=== PATIENT | male | born 1960 | race Caucasian/White ===

== ENCOUNTER 2017-06-24 03:44 | Inpatient (IN) | payer OTHER ==
[2017-06-24] VITALS (16 sets, daily range): BP systolic 103–157; BP diastolic 55–96; PULSE 54–82; RESP 18–22; TEMP 97.7–98.4; O2SAT 92–98
[~2017-06-24] VITALS: Ht 177.8 cm; Wt 128.5 kg
[~2017-06-24 03:44] MED LIST: ATEN-100 PO; ATOR80TA PO; BUDE100T PO; GABA100C4 PO; GLIP5 PO; GLUC1000 PO; LISI-363 PO; NAPR500 PO; PRAZ2CAP PO; SERT-129 PO
[2017-06-24] MEDS ORDERED: NITROGLYCERIN 0.4 MG SL 25 TABS/BTL SL STA (03:54)
[2017-06-24] MEDS ORDERED: ASPIRIN 81 MG CHEW TAB PO STA (03:54)
[2017-06-24] MEDS ORDERED: SODIUM CHLOR 0.9% 1000 ML INJ 1,000 ML IV ONE (03:54)
[2017-06-24] MEDS ORDERED: HEPARIN SODIUM - SQ 10,000 UNITS/ML VIAL SQ ONE (04:00)
[2017-06-24] MEDS ORDERED: HEPARIN SODIUM - IV 10,000 UNITS/10 ML VIAL IV ONE (04:00)
[2017-06-24] MEDS ORDERED: NITROGLYCERIN-D5W 50 MG/250 ML 250 ML IV PRN (04:00)
[2017-06-24] MEDS ORDERED: NITROGLYCERIN 2% OINT 1 GM PACKET TOPICAL ONE (04:00)
[2017-06-24] MEDS ORDERED: SODIUM CHLORIDE 0.9% FLUSH 10 ML FLUSH IVF PRN (04:00)
[2017-06-24] MEDS ORDERED: METF1000 PO (04:14)
[2017-06-24] MEDS ORDERED: GABA100C4 PO (04:14)
[2017-06-24] MEDS ORDERED: ATEN25TA PO (04:14)
[2017-06-24] MEDS ORDERED: LISI-515 PO (04:14)
[2017-06-24] MEDS ORDERED: BUPR100T4 PO (04:14)
[2017-06-24] MEDS ORDERED: GLIP5TAB8 PO (04:14)
[2017-06-24] MEDS ORDERED: SERT-129 PO (04:14)
[2017-06-24] MEDS ORDERED: PRAZ2CAP PO (04:14)
[2017-06-24] MEDS ORDERED: ATOR80TA45 PO (04:14)
[2017-06-24] MEDS ORDERED: MORPHINE SULFATE 2 MG/ML SYRINGE IV PUSH ONE (04:15)
--- NOTE | 2017-06-24 04:15 | RADRPT ---
EXAM DATE/TIME: 06/24/2017 03:55 [place] COMPARISON: No previous studies available for comparison. INDICATIONS : Chest pain, stemi alert. MEDICAL HISTORY : None. SURGICAL HISTORY : None. ENCOUNTER: Initial ACUITY: 1 day PAIN SCORE: 8/10 LOCATION: Bilateral chest FINDINGS: The cardiac silhouette is enlarged in transverse diameter. The lungs are free of acute parenchymal op acity. No effusions are identified. Osseous structures are intact. CONCLUSION: Cardiomegaly. No acute cardiopulmonary disease. Homer Rodriguez MD on June 24, 2017 at 4:14 Board Certified Radiologist. This report was verified electronically.
[2017-06-24 04:16] LABS: AUTOMATED NEUTROPHIL # 8.6 TH/MM3 (1.8-7.7); BASOPHIL # 0.1 TH/MM3 (0-0.2); BASOPHIL % 0.5 % (0.0-2.0); EOSINOPHIL # 0.1 TH/MM3 (0-0.4); EOSINOPHIL % 0.5 % (0.0-4.0); HEMATOCRIT 44.1 % (39.0-51.0); HEMOGLOBIN 15.3 GM/DL (13.0-17.0); LYMPH % 11.3 % (9.0-44.0); LYMPHOCYTE # 1.2 TH/MM3 (1.0-4.8); MEAN CELL VOLUME 100.4 FL (80.0-100.0); MEAN CORPUSCULAR HEMOGLOBIN 34.9 PG (27.0-34.0); MEAN CORPUSCULAR HGB CONC 34.7 % (32.0-36.0); MEAN PLATELET VOLUME 8.6 FL (7.0-11.0); MONO % 6.9 % (0.0-8.0); MONOCYTE # 0.7 TH/MM3 (0-0.9); NEUT % 80.8 % (16.0-70.0); PLATELET COUNT 183 TH/MM3 (150-450); RED BLOOD COUNT 4.39 MIL/MM3 (4.50-5.90); RED CELL DISTRIBUTION WIDTH 13.4 % (11.6-17.2); WHITE BLOOD COUNT 10.6 TH/MM3 (4.0-11.0)
[2017-06-24 04:22] LABS: INTERNATIONAL NORMALIZED RATIO 0.9 RATIO; PROTHROMBIN TIME - PATIENT 9.6 SEC (9.8-11.6)
--- NOTE | 2017-06-24 04:23 | PD ---
HPI . Chest pain Chief Complaint: STEMI Alert Time Seen by Provider: 03:50 Travel History International Travel<30 days: No Contact w/Intl Traveler<30days: No Traveled to known affect area: No History of Present Illness HPI Patient is a 57-year-old male obese diabetic hypertensive out walking his dog tonight developed substernal chest pain very heavy crushing 10 out of 10 pain paramedics were called they arrived they do a 12-lead and he has elevations in the 3 V4 V5 with minimal reciprocal depressions in 1 and aVL. Patient denies any cardiac history in the past patient has no family history patient still having the pain significant in the ER he was given 325 of aspirin in route he was given 2 sublingual nitro he arrives BP is 134/70 heart rate is 90 his EKG done in the ER confirms the ST elevations in V3 V4 V5 I page Dr. Vaughn's lab scientist is open STEMI alert is started and patient is medicated with heparin 5000 unit bolus he been given aspirin and nitro en route I put nitro paste on his chest give him 2 of morphine for vasodilation of the coronary arteries and admit him to the Management Specialist patient is stable at this time but he stills continues to have chest pain labs are pending [facility] Past Medical History Cardiovascular Problems: Yes (htn) Cerebrovascular Accident: Yes Diabetes: Yes Patient Takes Glucophage: Yes Hypertension: Yes Psychiatric: Yes (PTSD) Tetanus Vaccination: Unknown Influenza Vaccination: Yes Past Surgical History Surgical History: No Previous Surgery Social History Alcohol Use: Yes (3 [employer]) Tobacco Use: Yes (1PPD) Substance Use: No Allergies-Medications (Allergen,Severity, Reaction): Coded Allergies: No Known Allergies (Unverified Allergy, Unknown, 06/24/17) Reported Meds & Prescriptions Reported Meds & Active Scripts Active Reported Sertraline (Sertraline HCl) 100 Mg Tab 200 Mg PO DAILY Prazosin (Prazosin HCl) 2 Mg Cap 2 Mg PO HS Metformin (Metformin HCl) 1,000 Mg Tab 1,000 Mg PO BIDPC Lisinopril 20 Mg Tab 20 Mg PO DAILY Glipizide 5 Mg Tab 5 Mg PO BIDAC Take 30 minutes before a meal Gabapentin 100 Mg Cap 100 Mg PO TID Bupropion HCl 100 Mg Tab 100 Mg PO HS Atorvastatin (Atorvastatin Calcium) 80 Mg Tab 80 Mg PO HS Review of Systems Except as stated in HPI: all other systems reviewed are Neg Cardiovascular: Positive: Chest Pain or Discomfort Physical Exam Narrative GENERAL: LARGE BODY HABITUS TALL MALE PALE SLIGHTLY DIAPHORETIC HOLDING CHEST SKIN: Warm and dry. HEAD: Atraumatic. Normocephalic. EYES: Pupils equal and round. No scleral icterus. No injection or drainage. ENT: No nasal bleeding or discharge. Mucous membranes pink and moist. NECK: Trachea midline. No JVD. CARDIOVASCULAR: Regular rate and rhythm. RESPIRATORY: No accessory muscle use. Clear to auscultation. Breath sounds equal bilaterally. GASTROINTESTINAL: Abdomen soft, non-tender, nondistended. Hepatic and splenic margins not palpable. MUSCULOSKELETAL: Extremities without clubbing, cyanosis, or edema. No obvious deformities. NEUROLOGICAL: Awake and alert. No obvious cranial nerve deficits. Motor grossly within normal limits. Five out of 5 muscle strength in the arms and legs. Normal speech. PSYCHIATRIC: Appropriate mood and affect; insight and judgment normal. Data Data Last Documented VS Vital Signs Date Time Temp Pulse Resp B/P (MAP) Pulse Ox O2 Delivery O2 Flow Rate FiO2 06/24/17 03:49 94 2.00 06/24/17 03:48 98.4 71 22 135/62 (86) 06/24/17 03:45 Nasal Cannula Orders Orders Nitroglycerin 2% Oint (Nitroglycerin 2% (06/24/17 04:00) Heparin Inj (Heparin Inj) (06/24/17 04:00) Troponin I (06/24/17 03:54) Ckmb (Isoenzyme) Profile (06/24/17 03:54) Complete Blood Count With Diff (06/24/17 03:54) I-Stat Profile (06/24/17 03:54) I-Stat Creatinine (06/24/17 03:54) Calcium (06/24/17 03:54) Magnesium (Mg) (06/24/17 03:54) Prothrombin Time / Inr (Pt) (06/24/17 03:54) Act Partial Throm Time (Ptt) (06/24/17 03:54) B-Type Natriuretic Peptide (06/24/17 03:54) Chest, Single Ap (06/24/17 03:54) Electrocardiogram (06/24/17 03:54) Oxygen Administration (06/24/17 03:54) Iv Access Insert/Monitor (06/24/17 03:54) Oximetry (06/24/17 03:54) Sodium Chlor 0.9% 1000 Ml Inj (Ns 1000 M (06/24/17 03:54) Sodium Chloride 0.9% Flush (Ns Flush) (06/24/17 04:00) Aspirin Chew (Aspirin Chew) (06/24/17 03:54) Nitroglycerin Sl (Nitrostat Sl) (06/24/17 03:54) Nitroglycerin-D5w 50 Mg/250 Ml (Nitrogly (06/24/17 04:00) Heparin Inj (Heparin Inj) (06/24/17 04:00) Admit Order (Ed Use Only) (06/24/17 03:58) CKMB (06/24/17 03:45) CKMB% (06/24/17 03:45) Labs Laboratory Tests Test 06/24/17 03:45 White Blood Count 10.6 TH/MM3 Red Blood Count 4.39 MIL/MM3 Hemoglobin 15.3 GM/DL Bedside Hemoglobin 15.3 G/DL Hematocrit 44.1 % Bedside Hematocrit 45.0 % Mean Corpuscular Volume 100.4 FL Mean Corpuscular Hemoglobin 34.9 PG Mean Corpuscular Hemoglobin Concent 34.7 % Red Cell Distribution Width 13.4 % Platelet Count 183 TH/MM3 Mean Platelet Volume 8.6 FL Neutrophils (%) (Auto) 80.8 % Lymphocytes (%) (Auto) 11.3 % Monocytes (%) (Auto) 6.9 % Eosinophils (%) (Auto) 0.5 % Basophils (%) (Auto) 0.5 % Neutrophils # (Auto) 8.6 TH/MM3 Lymphocytes # (Auto) 1.2 TH/MM3 Monocytes # (Auto) 0.7 TH/MM3 Eosinophils # (Auto) 0.1 TH/MM3 Basophils # (Auto) 0.1 TH/MM3 CBC Comment DIFF FINAL Differential Comment Prothrombin Time 9.6 SEC Prothromb Time International Ratio 0.9 RATIO Activated Partial Thromboplast Time 28.5 SEC Bedside Sodium 135 MMOL/L Bedside Potassium 4.6 MMOL/L Bedside Chloride 100 MMOL/L Bedside Blood Urea Nitrogen 11 MG/DL Bedside Creatinine 0.7 MG/DL Bedside Glucose 261 MG/DL Calcium Level 8.7 MG/DL Magnesium Level 1.8 MG/DL Total Creatine Kinase 152 U/L Creatine Kinase MB 4.1 NG/ML Troponin I 0.34 NG/ML B-Type Natriuretic Peptide 14 PG/ML MDM Medical Decision Making Medical Screen Exam Complete: Yes Emergency Medical Condition: Yes Interpretation(s) EKG significant > 2mm elevation in V3 V4 V5 ACUTE SD elevation Differential Diagnosis ACS with ischemia to anterior septal area vs LV aneurysm vs aortic dissection at root other Narrative Course pt has obvious STEMI to anterior septal leads and needs emergent cath , EMS 12 lead shows V3-5 elevation and immediately did EKG in OUR ER immediately as pt placed on Exam room stretcher and activated STEMI alert upon our EKG confirming the STEMI , Dr Encinas calls immediately back and takes pt to cath , I bolus Hepain 5000Units Pt had received ASA 324 in EMS and Nitro SL . I put nitro Past and hepainize and Morphine 2 mg for vasodilation effect to coronary arteies . Pt taken to predictive maintenance technician with 20 minutes of arrival Critical Care Narrative 30 min CC time to heparinize and activate STEMI alert and consult interventional cardiology Diagnosis Primary Impression: STEMI (ST elevation myocardial infarction) Qualified Codes: I21.02 - ST elevation (STEMI) myocardial infarction involving left anterior descending coronary artery Scripts Aspirin (Px Aspirin) 325 Mg Tab 325 MG PO DAILY for CAD for 30 Days, #30 TAB Prov: Juhi Briscoe MD 06/25/17 Clopidogrel (Plavix) 75 Mg Tab 75 MG PO DAILY for ACS for 30 Days, #30 TAB 11 Refills Prov: Juhi Briscoe MD 06/25/17 Eduard Mohan MD Jun 24, 2017 04:23
[2017-06-24] MEDS ORDERED: LIDOCAINE HCL 1% PF 30 ML VIAL ONE (04:30)
[2017-06-24] MEDS ORDERED: HEPARIN-NS/PF FLUSH BAG 2,000 ML IV FLUSH ONE (04:31)
[2017-06-24] MEDS ORDERED: MIDAZOLAM HCL 5 MG/5 ML VIAL ONE (04:31)
[2017-06-24] MEDS ORDERED: HEPARIN SODIUM - IV 10,000 UNITS/10 ML VIAL ONE (04:31)
[2017-06-24 04:38] LABS: CALCIUM 8.7 MG/DL (8.5-10.1); MAGNESIUM 1.8 MG/DL (1.5-2.5)
[2017-06-24 04:41] LABS: TROPONIN I 0.34 NG/ML (0.02-0.05)
[2017-06-24] MEDS ORDERED: TIROFIBAN INFUSION INJ 250 ML IV ONE (04:51)
[2017-06-24] MEDS ORDERED: ONDANSETRON HCL 4 MG/2 ML VIAL ONE (04:51)
--- NOTE | 2017-06-24 05:04 | MB ---
cc: Dionisio Encinas MD DATE: 06/24/2017 REASON FOR CONSULTATION: ST elevation myocardial infarction. HISTORY OF PRESENT ILLNESS: The patient is a 57-year-old white male with a history of diabetes, CVA, hypertension and hyperlipidemia who was in his usual state of health up until midnight, when he began to experience severe substernal crushing chest pain while walking his dog. Associated symptoms include shortness of breath without nausea or diaphoresis. He went to the emergency department, where he was found to have EKG evidence for acute ST elevation myocardial infarction, so he was called as a STEMI alert. He denies dizziness, syncope, near syncope, palpitations, pedal edema, paroxysmal nocturnal dyspnea. He denies any prior chest pains. PAST MEDICAL HISTORY: 1. Diabetes. 2. Hypertension. 3. Hyperlipidemia. 4. 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 CARDIAC MEDICATIONS AT HOME: 1. Prazosin 2 mg at bedtime. 2. Lisinopril 20 mg daily. 3. Atorvastatin 80 mg at bedtime. 4. Tenormin 25 mg daily. ALLERGIES: NO KNOWN DRUG ALLERGIES. FAMILY HISTORY: There is no significant family history of early myocardial infarction. PAST SURGICAL HISTORY: None. SOCIAL HISTORY: The patient smokes a pack of cigarettes per day. He drinks occasional alcohol. REVIEW OF SYSTEMS: As in the history of present illness, otherwise negative or noncontributory. He also denies visual changes, abdominal pain, melena, dyspepsia, flu symptoms. PHYSICAL EXAMINATION: VITAL SIGNS: Blood pressure 103/55 with a pulse of 75, respirations 22. GENERAL: He is a well-developed, well-nourished white male in no acute distress. NECK: Jugular venous pressure is normal. Carotid pulses are 2+ bilaterally without bruits. CHEST: Reveals clear lungs moreno. CARDIAC: He has a regular rhythm and rate without S3, S4, or murmur. ABDOMEN: He has a soft, obese, nontender abdomen. Bowel sounds are present. There is no definite hepatosplenomegaly. EXTREMITIES: Reveals no clubbing, cyanosis or edema. Peripheral pulses are normal throughout. LABORATORY DATA: EKG shows sinus rhythm with premature atrial complexes, ST elevation in the anterior leads with reciprocal changes consistent with acute anterior myocardial infarction. LABORATORY DATA: Includes WBC 10.6, hemoglobin 15.3, platelets 183. Potassium 4.6, BUN 11, creatinine 0.7. Chest x-ray shows no acute disease. IMPRESSION: Acute ST elevation anterior myocardial infarction in a 57-year-old white male with a history of hypertension, diabetes, hyperlipidemia, and cerebrovascular accident. At this time, he continues to have severe chest pain with ST elevation on the monitor. Therefore, he has been recommended emergency cardiac catheterization with probable percutaneous coronary intervention. The nature of these procedures and potential risks, including but limited to , myocardial infarction, stroke, arrhythmia, bleeding, renal failure have been outlined. He agrees to proceed. RECOMMENDATIONS: 1. Emergency cardiac catheterization. 2. Continue beta ashley and HAMMAD inhibitor therapy. 3. Continue statin and check a fasting lipid profile. MD ROSS Fraser/NIKKI , 04:43 AM , 05:03 AM ZAYDA
[2017-06-24] MEDS ORDERED: NITROGLYCERIN INJ 5 ML ONE (05:31)
[2017-06-24] MEDS ORDERED: CLOPIDOGREL 300 MG TAB ONE (05:42)
[2017-06-24] MEDS ORDERED: TIROFIBAN INFUSION INJ 250 ML IV SCH (05:55)
[2017-06-24] MEDS: SODIUM CHLOR 0.9% 1000 ML INJ 1,000 ML IV SCH ×2 (05:55→15:55)
[2017-06-24] MEDS ORDERED: MISC INFORMATION XX ONE (06:00)
[2017-06-24] MEDS ORDERED: TEMAZEPAM 15 MG CAP PO PRN (06:00)
--- NOTE | 2017-06-24 06:04 | CATHPROC ---
[facility] HIS Report Study Information Study Number Admission Scheduled Start Study Start [id number] Jun 24 2017 4:00AM 06/24/2017 Jun 24 2017 4:26AM [place] [facility] Cardiac Catheterization Admit Source Facility Department Emergency department [facility] - Technical Planner Physician and Clinical Staff Initial Dionisio Caro Liquor Rectifier Mary Anne Sutton,RN Initial Dionisio Caro Liquor Rectifier Jessica Lopez,RN Recorder Brisa Alberts ,RT(R) Recorder Brisa Alberts ,RT(R) Scrub Andres RoseRT(R) Procedures Performed Procedure Location (Site) Vessel Name Angiogram LV LV Ventricle Coronary Angiograms LCA Left Coronary Coronary Angiograms RCA Right Coronary L Heart Cath PTCA LAD Prox Left Coronary Stent LAD Prox Left Coronary Wire insertion Fem Art (right) Femoral Art Equipment Time 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 Description Size Mfg Part Number Used/Scraped [id number] 04:51 [employer] WIRE, ASAHI PROWATER 180CM 180CM Used *[id number] WIRE, BALANCE MIDDLEWEIGHT [id number] 05:03 [employer] 190CM Used 190CM *[id number] WIRE, WHISPER W/HYDROCOAT [id number] 05:07 [employer] 190CM Used 190CM *[id number] TRANSDUCER, TRUWAVE [id number] 04:31 GARCIA WILSON * Used W/CÉSARCOCK *[id number] 05:41 [employer] VASCADE, FR6 CLOSURE SYSTEM FR 6\\7 Used *[id number] 534-676T *[id number] 534-620T *4543954 534-617T *5366954 534-650S *[id number] [phone] *3721770 [phone] *9749982 [phone] *[id number] 04:31 MEDLINE IND[employer]RIES PACK, CCL CUSTOM * Used *[id number] 04:31 MEDLINE PACER PEN, SKIN DUAL W/ RULER * Used *[id number] 05:17 MEDTR[employer] BALLOON, 2.0 X 12MM EUPHORA 12MM Used *[id number] 05:12 [employer] BALLOON, 2.0 X 6MM EUPHORA 6MM Used *[id number] 05:27 [employer] BALLOON, 2.5 X 20MM EUPHORA 20MM Used *[id number] [id number] 05:33 [employer] STENT, 2.5 26 INTEGRITY 2.5 26 Used *[id number] [id number] 05:16 [employer] 30 REYMUNDO INDEFLATOR Used *8554317 [id number] 04:31 [employer] SHEATH, FR6.5 PRELUDE 11CM FR 6.5 038ACT Used *[id number] [id number] 04:31 [employer] WIRE, 3MMJ .035 180CM 180CM Used *[id number] 04:31 NAMIC MANIFOLD, 4 PORT * Used *[id number] 05:37 NAMIC TUBING, HIGH PRESSURE 20" 20" Used *[id number] 04:31 [employer]COMED OMNIPAQUE, 350 MG, 150ML 150ML [id number] Used [id number] 04:31 [employer] BLANKET,WARM AIR CCL * Used *[id number] Equipment Model, Serial, Lot Number and Expiration Data Description Model Number Serial Number Lot Number Expiration Date STENT, 2.5 26 INTEGRITY [id number] 12-12-2018 History: Allergies Allergy Reaction No Known Allergies History: Risk Factors Family History of Hypertension Dyslipidemia Previous DE Previous Heart Failure Premature CAD Yes Yes No No No Prior Valve Prior PCI Prior CABG Surgery No No No Cerebrovascular Peripheral Artery Chronic Lung On Dialysis Diabetes Disease Disease Disease No Yes No Yes Yes History: Other Current Smoker Method Yes Cigarettes Labs Hgb (g/dl) Hct (%) WBC (l/cumm) Platelets (thousands) 11.60-17.00 35.00-51.00 4.00-11.00 150.00-450.00 15.3 44.1 10.6 183 Glucose (mg/dl) BUN (mg/dl) Creatinine (mg/dl) BUN:Creatinine (1:x) 74.00-106.00 7.00-18.00 0.50-1.30 10.00-20.00 261 11 0.7 15.7 Na (meq/l) K (meq/l) Cl (meq/l) 136.00-145.00 3.50-5.10 98.00-107.00 135 4.6 100 INR (PTT:PT) 0.90-1.10 0.9 CPK-MB (ng/ML) 0.50-3.60 Not Drawn Medication Medication Total Dose (Bolus/Oral) Medication Total Dosage/Unit 1% XYLOCAINE 20 mL AGGRASTAT BOLUS 62 mL FENTANYL 100 mcg HEPARIN 67575 units NTG (IC) 200 mcg PLAVIX 600 mg VERSED 4 mg ZOFRAN 4 mg Medications (Bolus/Oral) Medication Time Given Dosage/Unit Administered By Reason VERSED 06/24/2017 4:45:38 AM 2 mg Adamy, Mary Anne 2 mg VERSED given in lab by Mary Anne Sutton RN in Left Antecubital via Peripheral IV. Ordered by Dionisio Nielsen. 1% XYLOCAINE 06/24/2017 4:46:26 AM 20 mL Aleshia Suttonnifer 20 mL 1% XYLOCAINE given in lab by Mary Anne Sutton RN in Right Groin via Subcutaneous. Ordered by Dionisio Hensley. FENTANYL 06/24/2017 4:46:48 AM 50 mcg Adamy, Mary Anne 50 mcg FENTANYL given in lab by Mary Anne Sutton RN in Left Antecubital via Peripheral IV. Ordered by Dionisio Encinas. ZOFRAN 06/24/2017 4:52:13 AM 4 mg Adamy, Mary Anne 4 mg ZOFRAN given in lab by Mary Anne Sutton RN in Left Antecubital via Central IV. Ordered by Dionisio Encinas. HEPARIN 06/24/2017 4:54:16 AM 7300 units Mary Anne Sutton 7300 units HEPARIN given in lab by Mary Anne Sutton RN in Left Antecubital via Peripheral IV. Ordered by Dionisio Encinas. AGGRASTAT BOLUS 06/24/2017 4:58:27 AM 62 mL Aleshia Suttonnifer 62 mL AGGRASTAT BOLUS given in lab by Mary Anne Sutton RN in Left Antecubital via Peripheral IV. Orde red by Dionisio Encinas. HEPARIN 06/24/2017 5:11:59 AM 3000 units Jessica Lopez 3000 units HEPARIN given in lab by Jessica Lopez RN in Left Antecubital via Peripheral IV. Ordered by Dionisio Encinas. VERSED 06/24/2017 5:19:18 AM 2 mg Adamy, Mary Anne 2 mg VERSED given in lab by Mary Anne Sutton RN in Left Antecubital via Peripheral IV. Ordered by Dionisio Nielsen. FENTANYL 06/24/2017 5:20:27 AM 50 mcg Mary Anne Sutton 50 mcg FENTANYL given in lab by Mary Anne Sutton RN in Left Antecubital via Peripheral IV. Ordered by Dionisio Encinas. NTG (IC) 06/24/2017 5:31:40 AM 50 mcg Milton, Andres 50 mcg NTG (IC) given in lab by Andres Rose RT(R) via Intra-coronary. Ordered by Dionisio Encinas. NTG (IC) 06/24/2017 5:32:20 AM 50 mcg Milton, Andres 50 mcg NTG (IC) given in lab by Andres Rose RT(R) via Intra-coronary. Ordered by Dionisio Encinas. NTG (IC) 06/24/2017 5:35:39 AM 100 mcg Milton, Andres 100 mcg NTG (IC) given in lab by Andres Rose RT(R) via Intra-coronary. Ordered by Dionisio Encinas. PLAVIX 06/24/2017 5:50:00 AM 600 mg Mary Anne Sutton 600 mg PLAVIX given in lab by Mary Anne Sutton, HEATHER via Oral. Ordered by Dionisio Encinas. Medication (Drip) Medication Time Given Dosage/Unit Concentration/Unit Diluent (ml) Solution AGGRASTAT DRIP 06/24/2017 5:02:28 AM 1.105 mL/hr 12.5 mL 250 NaCl .9 1.105 mL/hr AGGRASTAT DRIP given in lab by Mary Anne Sutton RN in Left Antecubital via Peripheral IV. Pump/Drip Flow = 22.1 ml/hr using NaCl .9 with a concentration of 12.5 mL in 250 ml. Ordered by Dionisio Encinas. IV Solutions 06/24/2017 4:41:09 AM 50 mL (IV) NaCl .9 Patient arrived on IV Solutions in Right Antecubital via Peripheral IV. Pump/Drip Flow using NaCl .9. NITROGLYCERIN DRIP 06/24/2017 4:44:39 AM 10 mcg/min 50 mg 250 D5W Patient arrived on 10 mcg/min NITROGLYCERIN DRIP in Left Antecubital via Peripheral IV. Pump/Drip Mike w = 3 ml/hr using D5W with a concentration of 50 mg in 250 ml. NITROGLYCERIN DRIP 06/24/2017 5:12:00 AM 20 mcg/min 50 mg 250 D5W 20 mcg/min NITROGLYCERIN DRIP given in lab by Mary Anne Sutton RN in Left Antecubital via Peripheral IV. Pump/Drip Flow = 6 ml/hr using D5W with a concentration of 50 mg in 250 ml. Ordered by Dionisio Encinas. Initial Case Assessment Cardiovascular HR Rhythm NIBP Chest Pain 109 stemi 147/82 8 Edema Present Skin color Skin Mild Normal Warm Dry Circulatory - Right Pulses Dorsalis Pedis Femoral 1 2 Scale (0,1,2,3,4,d) Circulatory - Left Pulses Dorsalis Pedis Femoral 1 2 Scale (0,1,2,3,4,d) Neurological State Oriented to time-place- Alert Moves all extremities person Respiration - General Respiration Rate SpO2 (%) O2 (lpm) (B/min) 16 98 3 Final Case Assessment Cardiovascular HR Rhythm NIBP Chest Pain 84 stemi 144/93 5 Edema Present Skin color Skin Mild Normal Warm Dry Circulatory - Right Pulses Dorsalis Pedis Femoral 1 2 Scale (0,1,2,3,4,d) Circulatory - Left Pulses Dorsalis Pedis Femoral 1 2 Scale (0,1,2,3,4,d) Neurological State Oriented to time-place- Alert Moves all extremities person Respiration - General Respiration Rate SpO2 (%) O2 (lpm) (B/min) 16 98 3 Chronological Log Time Study Chronological Log 4:26:15 Called ED. Ready for patient 4:26:[address] with patient 4:33:56 Patient arrived directly from ER. 4:34:03 Patient Name, D.O.B, / Armband Verified By R.N. 4:35:31 MD arrived. Vitals capture started with the following parameters, Patient=Adult, Interval=5 min, Initial Pr tjtbcu=821 mmHg, 4:37:52 Deflation Rate=5 mmHg, Cuff placed on Left Arm 4:38:34 HR=77 bpm, DYPE=075/82 mmhg, SpO2=99 %, Pain=8, Beatrice=8, Lofton=2 4:40:49 Consent signed by the physician and the patient and verified by the Technical Planner staff. 4:41:01 Skin Breakdown- none per patient 4:41:04 Disposable Defibrillator Pads Placed On Patient. 4:41:08 Andrew Prominences Protected 4:41:09 A # 20 IV was noted in the Antecubital (left). Grade = 0 4:41:09 A # 20 IV was noted in the Antecubital (right). Grade = 0 4:41:09 Patient arrived on IV Solutions in Right Antecubital via Peripheral IV. Pump/Drip Flow usin g NaCl .9. Assessment: Initial Case, WN=117 BPM, Rhythm=stemi, KMSC=648/82 mmhg, Chest Pain=8, Edema=Mild, Color=Normal, Skin = Warm, Dry Right Pulses: Don Ped=1, Femoral=2 4:41:16 Left Pulses: Don Ped=1, Femoral=2 Neurological: State=Alert, Ox3, AGUIRRE Respiration: Resp=16 B/min, SpO2=98 %, O2=3 lpm 4:42:00 Bilateral groins prepped with 2% chlorhexidine, and draped after a 3 minute waiting time. 4:43:33 HR=78 bpm, PRBH=954/96 mmhg, SpO2=99.0 %, Resp=19 B/min, Pain=8, Beatrice=8, Lofton=2 4:43:34 Reference ECG taken Patient arrived on 10 mcg/min NITROGLYCERIN DRIP in Left Antecubital via Peripheral IV. Pump/Dri p Flow = 3 ml/hr 4:44:39 using D5W with a concentration of 50 mg in 250 ml. 4:44:59 Pressure channel 1 zeroed. 4:45:38 2 mg VERSED given in lab by Mary Anne Sutton RN in Left Antecubital via Peripheral IV. Order ed by Dionisio Encinas. Time Out. Correct patient, correct procedure, correct physician, power injector not loaded with contrast with surgical 4:45:56 team present. Time Out Concurred by MD and individual staff in procedure. 4:45:58 Case Start 4:46:26 20 mL 1% XYLOCAINE given in lab by Mary Anne Sutton, HEATHER in Right Groin via Subcutaneous. Orde red by Dionisio Encinas. 4:46:48 50 mcg FENTANYL given in lab by Mary Anne Sutton, HEATHER in Left Antecubital via Peripheral IV. O rdered by Dionisio Encinas. 4:47:01 Access site was Right Femoral Artery. 4:47:06 A SHEATH, FR6.5 PRELUDE 11CM FR 6.5 was advanced into the Fem Art (right) using the Percutan eous technique. 4:47:28 A JL 4.0 INFINITI CATHETER FR 6 was advanced over a wire. contrast was used for injections. 4:48:34 HR=79 bpm, NFIC=056/87 mmhg, SpO2=94.0 %, Resp=23 B/min, Pain=8, Beatrice=8, Lofton=2 4:48:52 Activated Clotting Time Drawn After removing the current catheter a JL 4.5 INFINITI CATHETER FR 6 was advanced over a WIRE, 3M MJ .035 180CM 4:49:04 180CM. 4:50:24 The LCA was injected and visualized at various angles. OMNIPAQUE, 350 MG, 150ML 150ML used. After removing the current catheter a 3DRC INFINITI CATHETER FR 6 was advanced over a WIRE, 3MMJ .035 180CM 4:51:02 180CM. 4:52:04 The RCA was injected and visualized at various angles. OMNIPAQUE, 350 MG, 150ML 150ML used. 4:52:13 4 mg ZOFRAN given in lab by Mary Anne Sutton RN in Left Antecubital via Central IV. Ordered by Dionisio Encinas. 4:52:23 Catheter was removed 4:53:35 HR=96 bpm, HUIW=188/94 mmhg, SpO2=94.0 %, Resp=24 B/min, Pain=8, Beatrice=8, Lofton=2 A XB 4.0 GUIDE CATHETER FR 6 was advanced over a wire. OMNIPAQUE, 350 MG, 150ML 150ML was used f or 4:53:57 injections. 4:54:08 ACT (Normal Range 90-180) = 168 4:54:16 7300 units HEPARIN given in lab by Mary Anne Sutton RN in Left Antecubital via Peripheral IV . Ordered by Dionisio Encinas. Recorded Pressure: Ao, HR=98, Condition=Condition 1 4:54:57 (Aorta) Ao 136/81/106 4:55:32 A WIRE, ASAHI PROWATER 180CM 180CM was inserted via Fem Art (right). 4:56:46 Wire removed to re shape 4:58:12 A WIRE, ASAHI PROWATER 180CM 180CM was inserted via Fem Art (right). 62 mL AGGRASTAT BOLUS given in lab by Mary Anne Sutton, HEATHER in Left Antecubital via Peripheral IV. Ordered by Ce 4:58:27 Dionisio. 4:58:34 HR=89 bpm, KEKE=730/87 mmhg, SpO2=93.0 %, Resp=21 B/min, Pain=8, Beatrice=8, Lofton=2 1.105 mL/hr AGGRASTAT DRIP given in lab by Mary Anne Sutton, HEATHER in Left Antecubital via Periphera l IV. Pump/Drip 5:02:28 Flow = 22.1 ml/hr using NaCl .9 with a concentration of 12.5 mL in 250 ml. Ordered by Steve Encinas. 5:03:03 Prowater Wire removed 5:03:13 A WIRE, BALANCE MIDDLEWEIGHT 190CM 190CM was inserted via Fem Art (right). 5:03:35 HR=82 bpm, GQEP=210/82 mmhg, SpO2=94.0 %, Resp=22 B/min, Pain=8, Beatrice=8, Lofton=2 5:05:03 BMW Wire removed to re shape 5:05:59 A WIRE, BALANCE MIDDLEWEIGHT 190CM 190CM was inserted via Fem Art (right). 5:06:35 BMW Wire removed 5:07:05 Activated Clotting Time Drawn 5:08:06 A WIRE, WHISPER W/HYDROCOAT 190CM 190CM was inserted via Fem Art (right). 5:08:36 HR=78 bpm, FWAH=951/88 mmhg, SpO2=95.0 %, Resp=22 B/min, Pain=8, Beatrice=8, Lofton=2 5:10:12 Interventional wire has crossed the lesion 5:10:46 ACT (Normal Range 90-180) = 188 5:11:59 3000 units HEPARIN given in lab by Jessica Lopez RN in Left Antecubital via Peripheral IV. Ordered by Dionisio Encinas. 20 mcg/min NITROGLYCERIN DRIP given in lab by Mary Anne Sutton, HEATHER in Left Antecubital via Periph eral IV. Pump/Drip 5:12:00 Flow = 6 ml/hr using D5W with a concentration of 50 mg in 250 ml. Ordered by Dionisio Encinas. A BALLOON, 2.0 X 6MM EUPHORA 6MM was inserted over WIRE, WHISPER W/HYDROCOAT 190CM 190CM via the 5:12:23 Fem Art (right). 5:13:37 HR=78 bpm, TXOD=139/94 mmhg, SpO2=94.0 %, Resp=23 B/min, Pain=8, Beatrice=8, Olfton=2 A BALLOON, 2.0 X 6MM EUPHORA 6MM over a WIRE, WHISPER W/HYDROCOAT 190CM 190CM in the LAD Prox wa s 5:15:22 inflated using a 30 REYMUNDO INDEFLATOR at 4 reymundo for 15 sec. 5:16:25 Balloon Removed. A BALLOON, 2.0 X 12MM EUPHORA 12MM was inserted over WIRE, WHISPER W/HYDROCOAT 190CM 190CM via t he 5:17:14 Fem Art (right). A BALLOON, 2.0 X 12MM EUPHORA 12MM over a WIRE, WHISPER W/HYDROCOAT 190CM 190CM in the LAD Prox was 5:18:19 inflated using a 30 REYMUNDO INDEFLATOR at 8 reymundo for 15 sec. 5:18:38 HR=79 bpm, JGCG=278/93 mmhg, SpO2=96.0 %, Resp=20 B/min, Pain=8, Beatrice=8, Lofton=2 A BALLOON, 2.0 X 12MM EUPHORA 12MM over a WIRE, WHISPER W/HYDROCOAT 190CM 190CM in the LAD Prox was 5:19:05 inflated using a 30 REYMUNDO INDEFLATOR at 8 reymundo for 15 sec. 5:19:18 2 mg VERSED given in lab by Mary Anne Sutton, RN in Left Antecubital via Peripheral IV. Order ed by Dionisio Encinas. A BALLOON, 2.0 X 12MM EUPHORA 12MM over a WIRE, WHISPER W/HYDROCOAT 190CM 190CM in the LAD Prox was 5:19:37 inflated using a 30 REYMUNDO INDEFLATOR at 8 reymundo for 30 sec. A BALLOON, 2.0 X 12MM EUPHORA 12MM over a WIRE, WHISPER W/HYDROCOAT 190CM 190CM in the LAD Prox was 5:20:12 inflated using a 30 REYMUNDO INDEFLATOR at 8 reymundo for 30 sec. 5:20:27 50 mcg FENTANYL given in lab by Mary Anne Sutton RN in Left Antecubital via Peripheral IV. O rdered by Dionisio Encinas. A BALLOON, 2.0 X 12MM EUPHORA 12MM over a WIRE, WHISPER W/HYDROCOAT 190CM 190CM in the LAD Prox was 5:22:17 inflated using a 30 REYMUNDO INDEFLATOR at 8 reymundo for 30 sec. 5:23:37 HR=83 bpm, DWMQ=812/85 mmhg, SpO2=91.0 %, Resp=20 B/min, Pain=8, Beatrice=8, Lofton=2 A BALLOON, 2.0 X 12MM EUPHORA 12MM over a WIRE, WHISPER W/HYDROCOAT 190CM 190CM in the LAD Prox was 5:25:09 inflated using a 30 REYMUNDO INDEFLATOR at 8 reymundo for 30 sec. 5:25:20 Activated Clotting Time Drawn 5:26:36 Balloon Removed. A BALLOON, 2.5 X 20MM EUPHORA 20MM was inserted over WIRE, WHISPER W/HYDROCOAT 190CM 190CM via t he 5:27:23 Fem Art (right). A BALLOON, 2.5 X 20MM EUPHORA 20MM over a WIRE, WHISPER W/HYDROCOAT 190CM 190CM in the LAD Prox was 5:28:11 inflated using a 30 REYMUNDO INDEFLATOR at 8 reymundo for 30 sec. 5:28:38 HR=82 bpm, IQTE=349/92 mmhg, SpO2=94.0 %, Resp=18 B/min, Pain=8, Beatrice=8, Lofton=2 A BALLOON, 2.5 X 20MM EUPHORA 20MM over a WIRE, WHISPER W/HYDROCOAT 190CM 190CM in the LAD Prox was 5:28:57 inflated using a 30 REYMUNDO INDEFLATOR at 8 reymundo for 30 sec. 5:29:39 Balloon Removed. 5:30:38 Nitro drip stopped 5:31:28 ACT (Normal Range 90-180) = 296 5:31:40 50 mcg NTG (IC) given in lab by Andres Rose RT(R) via Intra-coronary. Ordered by Dionisio Encinas. 5:32:20 50 mcg NTG (IC) given in lab by Andres Rose RT(R) via Intra-coronary. Ordered by Dionisio Encinas. An STENT, 2.5 26 INTEGRITY 2.5 26 Bare Metal Stent was inserted through a XB 4.0 GUIDE CATHETER FR 6 over a 5:33:29 WIRE, WHISPER W/HYDROCOAT 190CM 190CM. 5:33:39 HR=86 bpm, LAAI=039/72 mmhg, SpO2=93.0 %, Resp=17 B/min, Pain=8, Beatrice=8, Lofton=2 A STENT, 2.5 26 INTEGRITY 2.5 26 was deployed using a 30 REYMUNDO INDEFLATOR at 14 atmospheres for 30 seconds in 5:34:20 the LAD Prox. 5:35:16 Delivery device removed 5:35:39 100 mcg NTG (IC) given in lab by Andres Rose RT(R) via Intra-coronary. Ordered by Dionisio Encinas. 5:36:28 Whisper Wire removed 5:36:45 Catheter was removed A PIGTAIL STR INFINITI CATHETER FR 6 was advanced over a wire. OMNIPAQUE, 350 MG, 150ML 150ML wa s used for 5:36:58 injections. Recorded Pressure: LV, HR=91, Condition=Condition 1 5:37:54 (Left Ventricle) LV 118/13/32 5:38:34 HR=87 bpm, FWNR=698/80 mmhg, SpO2=94.0 %, Resp=19 B/min 5:38:43 The LV was injected at 12 cc/sec for a total of 42. OMNIPAQUE, 350 MG, 150ML 150ML used. Recorded Pressure: LV, Ao, HR=90, Condition=Condition 1 5:39:04 (Left Ventricle) LV 118/17/28, (Aorta) Ao 129/75/98 5:39:36 Catheter was removed 5:40:29 An injection in the Fem Art (right) was made through the SHEATH, FR6.5 PRELUDE 11CM FR 6.5. 5:41:09 VASCADE, FR6 CLOSURE SYSTEM FR 6\\7 placement in the Fem Art (right) 5:42:10 Case End Assessment: Final Case, HR=84 BPM, Rhythm=stemi, SPER=449/93 mmhg, Chest Pain=5, Edema=Mild, Col or=Normal, Skin = Warm, Dry Right Pulses: Don Ped=1, Femoral=2 5:43:49 Left Pulses: Don Ped=1, Femoral=2 Neurological: State=Alert, Ox3, AGUIRRE Respiration: Resp=16 B/min, SpO2=98 %, O2=3 lpm 5:43:56 Catheter(s) removed without difficulty 5:43:59 Sterile dressing applied to site 5:43:59 No case complications noted. 5:44:02 Cine recording checked. 5:44:06 Bedside Report will be given. 5:44:10 HR=81 bpm, KCPB=250/93 mmhg, SpO2=98.0 %, Resp=15 B/min, Pain=8, Beatrice=8, Lofton=2 5:44:11 Implantable Device card placed in patient's chart. 5:44:14 A Left Heart Cath was performed. 5:48:37 HR=79 bpm, LMHJ=901/93 mmhg, SpO2=97.0 %, Resp=19 B/min, Pain=8, Beatrice=8, Lofton=2 5:50:00 600 mg PLAVIX given in lab by Mary Anne Sutton RN via Oral. Ordered by Dionisio Encinas. 5:53:38 HR=77 bpm, NSXJ=147/98 mmhg, SpO2=97.0 %, Resp=20 B/min, Pain=8, Beatrice=8, Lofton=2 5:58:37 KCMC=842/105 mmhg, SpO2=98.0 %, Pain=8, Beatrice=8, Lofton=2 5:59:23 Vitals capture stopped. 6:02:57 Patient moved to [facility] End Study - Contrast Media Used In Study Contrast Total Opened (mL) Total Used (mL) Total Wasted (mL) Omnipaque 215 215 0 End Study - Maximum Contrast Load Max Contrast Load (mL) 878.6 End Study - Radiation Exposure Fluoro Time (minutes) 21.6 End Study - Sheaths Sheaths Pulled By Sheath Hold Time (min) Dionisio Encinas End Study - Patient Disposition Complications Transferred To Interventional Outcome No Critical Care Bed successful
--- NOTE | 2017-06-24 06:59 | MA ---
cc: Dionisio Encinas MD DATE: 06/24/2017 PROCEDURE: Emergency left heart catheterization, selective coronary angiography, left ventriculography, difficult angioplasty and stent of the very proximal LAD. PROCEDURE NOTES: The patient was brought to the cardiac catheterization laboratory in a fasting state after having signed informed consent in the midst of an acute anterior ST elevation myocardial infarction. The right groin was prepped and draped as per policy and anesthetized with 1% lidocaine. Arterial access was obtained via the right femoral artery and a 6-Zambian sheath placed. Coronary arteriography was performed using 6-Zambian Jennifer left 4.5 and right progressive catheters. Left ventriculography was done using a standard 6-Zambian pigtail. Percutaneous coronary intervention was done as described below. There were no apparent immediate complications. HEMODYNAMIC DATA: Left ventricle 118 with an end diastolic pressure of 17, aorta 129/75 with a mean of 98. There was no significant transvalvular aortic gradient on pullback of the pigtail catheter. CORONARY ARTERIOGRAPHY: The left main is normal. The left anterior descending is totally occluded very near its origin. The left circumflex is a relatively small vessel giving rise to a medium-sized branching obtuse marginal. There are minimal to mild luminal irregularities of the mid left circumflex. The more inferior branch of the obtuse marginal has up to 50% proximal stenosis diffusely. There is a large branching ramus intermedius, which has minimal luminal irregularities distally. The right coronary artery is a fairly large, dominant vessel with diffuse proximal to mid disease resulting in up to 30% stenosis. LEFT VENTRICULOGRAPHY: Contrast injection of the left ventricle reveals mild anterior hypokinesis. Ejection fraction is estimated at 50%. PERCUTANEOUS CORONARY INTERVENTION DESCRIPTION: Aggrastat was given as per protocol. Adequate heparin was given during the procedure to achieve an ACT greater than 250 seconds. Using a 6-Zambian XB 4.0 guiding catheter, the ostium of the left main was reengaged. A number of attempts were made using a Prowater and then a Balance Middleweight guidewire to wire the total occlusion. These attempts were unsuccessful. We finally used a Whisper wire. We were able to cross the total occlusion, but it was unclear where the distal portion of the wire was positioned. A short 2.0 mm balloon catheter was advanced to the very proximal LAD and inflated to 4 atmospheres. No flow was reestablished at this point, but we were able to now reposition the wire more distally, possibly in a septal account assistant. Further predilation was done using a 2.0 mm Euphora balloon catheter multiple times in the proximal LAD. This once again did not reestablish flow in the vessel. Additional inflations were done after we were able to reposition the wire in a more anterior coursing position typical of the left anterior descending. Further balloon inflations with a 2.0 mm balloon catheter finally reestablished flow, revealing a long 90%, irregular, hazy proximal stenosis. Additional predilation was done using a 2.5 x 20 mm Euphora balloon catheter. Stenting was then done using a 2.5 x 26 mm Integrity bare-metal stent, which was inflated to 14 atmospheres for 30 seconds. Final angiography shows reduction of the total occlusion to roughly 0% residual with no definite evidence for dissection or distal embolization. Multiple administrations of intracoronary nitroglycerin were administered. Overall, the patient tolerated the procedure well. There were no apparent immediate complications. The mid to distal LAD appears to have diffuse disease up to 10% severity. The LAD gives rise to a small diagonal, which is free of disease. CONCLUSIONS: 1. Severe single-vessel coronary artery disease, a totally occluded very proximal LAD, the patient's infarct-related vessel, now status post emergency angioplasty and stent of this region. 2. Mild anterior hypokinesis with overall low-normal left ventricular systolic function. Ejection fraction is estimated at 50%. MD ROSS Fraser/NIKKI , 05:52 AM , 06:58 AM ZAYDA
[2017-06-24] MEDS: ASPIRIN 325 MG TAB PO SCH (09:10)
[2017-06-24] MEDS: ATENOLOL 25 MG TAB PO SCH (09:11)
[2017-06-24] MEDS: LISINOPRIL 20 MG TAB PO SCH (09:12)
[2017-06-24] MEDS: PRAZOSIN HCL 2 MG CAP PO SCH (12:23)
[2017-06-24] MEDS: CLOPIDOGREL 75 MG TAB PO SCH (12:23)
--- NOTE | 2017-06-24 17:04 | EKG ---
Date Performed: 06/24/2017 Time Performed: 03:47:18 PTAGE: 57 years EKG: Sinus rhythm WITH OCCASIONAL VENTRICULAR PREMATURE COMPLEXES LOW QRS VOLTAGE IN PRECORDIAL LEADS MARKED ST ELEVAT ION, CONSIDER ANTEROSEPTAL INJURY ACUTE TN NO PREVIOUS TRACING DOCTOR: Bettye Cortez Interpretating Date/Time 06/24/2017 17:02:17
[2017-06-24] MEDS ORDERED: ASPIRIN 325 MG TAB PO ONE (20:15)
[2017-06-24] MEDS ORDERED: MORPHINE SULFATE 2 MG/ML SYRINGE IV PUSH PRN (20:15)
[2017-06-24] MEDS ORDERED: ATORVASTATIN 10 MG TAB PO SCH (21:00)
[2017-06-25] VITALS: BP 146/91; PULSE 85; RESP 20; TEMP 99.3; O2SAT 98
--- NOTE | 2017-06-25 01:27 | HHI.HP ---
[facility] Service [facility] Primary Care Physician Unknown Admission Diagnosis STEMI Diagnoses: Chief Complaint: Chest pain Travel History International Travel<30 Days: No Contact w/Intl Traveler <30 Da: No Traveled to Known Affected Are: No History of Present Illness 57-year-old male with a history of diabetes, hypertension, hyperlipidemia and a CVA with residual left-sided weakness was brought to the ED with chest pain. Patient states yesterday he began to have substernal crushing mid sternal chest pain while walking his dog, 12/20, with no radiation and with associated shortness of breath. Upon arrival to the ED he was found to have an EKG change with acute ST elevation and was called a STEMI alert. Cardiology then took patient to the [facility] for immediate catheterization with stent placement to the LAD. EF was found to be 50%, with systolic dysfunction. Upon examination in room patient states he in having mild chest pain with associated shortness of breath worse with deep breaths, no associated nausea. Past Family Social History Past Medical History Diabetes Hypertension Hyperlipidemia CVA with left-sided weakness Past Surgical History Patient denies any surgical history Allergies: Coded Allergies: No Known Allergies (Unverified Allergy, Unknown, 06/24/17) Family History Patient denies any family history no heart disease or cancer. Social History Tobacco use: 1 PPD Alcohol use: Occasional Illicit drug use: Denies Physical Exam Vital Signs Vital Signs Date Time Temp Pulse Resp B/P (MAP) Pulse Ox O2 Delivery O2 Flow Rate FiO2 06/25/17 00:00 99.3 85 20 98 06/24/17 23:00 70 06/24/17 19:53 98 Nasal Cannula 4.00 06/24/17 19:00 98.3 82 20 95 06/24/17 19:00 82 06/24/17 15:39 98.4 66 18 95 06/24/17 15:00 80 06/24/17 11:06 98.2 64 20 146/92 (110) 96 06/24/17 11:00 64 06/24/17 09:21 95 Nasal Cannula 4.00 06/24/17 08:00 98.0 55 18 123/77 (92) 96 06/24/17 07:00 55 06/24/17 06:30 55 06/24/17 06:10 97.7 54 18 134/82 (99) 92 06/24/17 04:27 06/24/17 04:27 75 22 103/55 (71) 96 Nasal Cannula 3.00 06/24/17 04:08 80 22 110/58 (75) 96 Nasal Cannula 3.00 06/24/17 04:03 77 119/55 06/24/17 03:49 94 2.00 06/24/17 03:48 98.4 71 22 135/62 (86) 93 06/24/17 03:45 93 Nasal Cannula 2.00 Physical Exam GENERAL: This is a well-nourished, well-developed patient ,who appears restless SKIN: No rashes, ecchymoses or lesions. Cool and dry. HEAD: Atraumatic. Normocephalic. EYES: Pupils equal round and reactive. Extraocular motions intact. ENT: Nose without bleeding, purulent drainage or septal hematoma. Airway patent. NECK: Trachea midline. No JVD or lymphadenopathy. CARDIOVASCULAR: Regular rate and rhythm without murmurs, gallops, or rubs. RESPIRATORY: Diminished Breath sounds equal bilaterally.No wheezes, rales, or rhonchi. GASTROINTESTINAL: Abdomen soft, non-tender, nondistended. No hepato-splenomegaly , or palpable masses. No guarding. MUSCULOSKELETAL: Extremities without clubbing, cyanosis, or edema. No calf tenderness. NEUROLOGICAL: Awake and alert. Motor and sensory grossly within normal limits. Normal speech. Laboratory Laboratory Tests Test 06/24/17 03:45 White Blood Count 10.6 Red Blood Count 4.39 Hemoglobin 15.3 Bedside Hemoglobin 15.3 Hematocrit 44.1 Bedside Hematocrit 45.0 Mean Corpuscular Volume 100.4 Mean Corpuscular Hemoglobin 34.9 Mean Corpuscular Hemoglobin Concent 34.7 Red Cell Distribution Width 13.4 Platelet Count 183 Mean Platelet Volume 8.6 Neutrophils (%) (Auto) 80.8 Lymphocytes (%) (Auto) 11.3 Monocytes (%) (Auto) 6.9 Eosinophils (%) (Auto) 0.5 Basophils (%) (Auto) 0.5 Neutrophils # (Auto) 8.6 Lymphocytes # (Auto) 1.2 Monocytes # (Auto) 0.7 Eosinophils # (Auto) 0.1 Basophils # (Auto) 0.1 CBC Comment DIFF FINAL Differential Comment Prothrombin Time 9.6 Prothromb Time International Ratio 0.9 Activated Partial Thromboplast Time 28.5 Bedside Sodium 135 Bedside Potassium 4.6 Bedside Chloride 100 Bedside Blood Urea Nitrogen 11 Bedside Creatinine 0.7 Bedside Glucose 261 Calcium Level 8.7 Magnesium Level 1.8 Total Creatine Kinase 152 Creatine Kinase MB 4.1 Troponin I 0.34 B-Type Natriuretic Peptide 14 Result Diagram: 06/24/17344 Imaging Last Impressions Chest X-Ray 06/24/17353 Signed Impressions: Service Date/Time: Saturday, June 24, 2017 03:55 - CONCLUSION: Cardiomegaly. No acute cardiopulmonary disease. MD Janelle Henriquez VTE Risk Assessment Janelle VTE Risk Assessment: Mod/High Risk (score >= 2) Janelle Risk Assessment Model Point Value = 1 Point Value = 2 Point Value = 3 Point Value = 5 Age 41-60 Minor surgery BMI > 25 kg/m2 Swollen legs Varicose veins or History of unexplained or recurrent spontaneous Oral contraceptives or hormone replacement Sepsis (< 1 month) Serious lung disease, including pneumonia (< 1 month) Abnormal pulmonary function Acute myocardial infarction Congestive heart failure (< 1 month) History of inflammatory bowel disease Medical patient at bed rest Age 61-74 Arthroscopic surgery Major open surgery (> 45 min) Laparoscopic surgery (> 45 min) Malignancy Confined to bed (> 72 hours) Immobilizing plaster cast Central venous access Age >= 75 History of VTE Family history of VTE Factor V Leiden Prothrombin [id number] Lupus anticoagulant Anticardiolipin antibodies Elevated serum homocysteine Heparin-induced thrombocytopenia Other congenital or acquired thrombophilia Stroke (< 1 month) Elective arthroplasty Hip, pelvis, or leg fracture Acute spinal cord injury (< 1 month) Prophylaxis Regimen Total Risk Factor Score Risk Level Prophylaxis Regimen 0-1 Low Early ambulation 2 Moderate Order ONE of the following: *Sequential Compression Device (SCD) *Heparin 5000 units SQ BID 3-4 Higher Order ONE of the following medications: *Heparin 5000 units SQ TID *Enoxaparin/Lovenox 40 mg SQ daily (WT < 150 kg, CrCl > 30 mL/min) *Enoxaparin/Lovenox 30 mg SQ daily (WT < 150 kg, CrCl > 10-29 mL/min) *Enoxaparin/Lovenox 30 mg SQ BID (WT < 150 kg, CrCl > 30 mL/min) AND/OR *Sequential Compression Device (SCD) 5 or more Highest Order ONE of the following medications: *Heparin 5000 units SQ TID (Preferred with Epidurals) *Enoxaparin/Lovenox 40 mg SQ daily (WT < 150 kg, CrCl > 30 mL/min) *Enoxaparin/Lovenox 30 mg SQ daily (WT < 150 kg, CrCl > 10-29 mL/min) *Enoxaparin/Lovenox 30 mg SQ BID (WT < 150 kg, CrCl > 30 mL/min) AND *Sequential Compression Device (SCD) Assessment and Plan Problem List: (1) STEMI (ST elevation myocardial infarction) ICD Code: I21.3 - ST elevation (STEMI) myocardial infarction of unspecified site Status: Acute (2) Diabetes ICD Code: E11.9 - Type 2 diabetes mellitus without complications (3) Hypertension ICD Code: I10 - Essential (primary) hypertension Status: Chronic Assessment and Plan 57-year-old male with a history of diabetes, hypertension, hyperlipidemia and a CVA with residual left-sided weakness was brought to the ED with chest pain. STEMI, patient is status post cardiac catheterization on 06/24 with stent placement to LAD EKG on arrival reviewed and shows ST elevation, troponin 0.34 -Continue atenolol, aspirin and Plavix per cardiology, morphine IV and Nitro for chest pain -Lipid profile ordered -Monitor telemetry -Cardiology is following Hypertension, chronic -Continue home lisinopril, monitor vital, adjust accordingly Diabetes, chronic -Accu-Cheks with sliding scale insulin ordered, hold oral agents while in hospital -Diabetic diet Hyperlipidemia, chronic -Reorder home atorvastatin Depression/anxiety -Reorder home Wellbutrin and Zoloft Tobacco abuse with possible underlying COPD -DuoNeb as needed -Encouraged to quit DVT prophylaxis: SCDs, heparin Discussed Condition With Patient and RN Physician Certification 2 Midnight Certification Type: Admission for Inpatient Services Order for Inpatient Services The services are ordered in accordance with Medicare regulations or non- Medicare payer requirements, as applicable. In the case of services not specified as inpatient-only, they are appropriately provided as inpatient services in accordance with the 2-midnight benchmark. Estimated LOS (days): 2 days is the estimated time the patient will need to remain in the hospital, assuming treatment plan goals are met and no additional complications. Post-Hospital Plan: Home Problem Qualifiers (1) STEMI (ST elevation myocardial infarction): Qualified Codes: I21.02 - ST elevation (STEMI) myocardial infarction involving left anterior descending coronary artery (2) Hypertension: Qualified Codes: I10 - Essential (primary) hypertension Juliana Reynolds Jun 25, 2017 01:27
[2017-06-25] MEDS ORDERED: GLUCAGON 1 MG/ML VIAL OTHER PRN (01:30)
[2017-06-25] MEDS ORDERED: DEXTROSE 50% IN WATER 50 ML VIAL(D50) IV PUSH PRN (01:30)
[2017-06-25] MEDS ORDERED: ASPIRIN 325 MG TAB PO PRN ×2 (02:00)
[2017-06-25] MEDS ORDERED: RESP: ALBUTEROL 2.5 MG/IPRATROPIUM 0.5 MG NEB (PRN) NEB (02:00)
[2017-06-25] MEDS ORDERED: NITROGLYCERIN 0.4 MG SL 25 TABS/BTL SL PRN (02:00)
[2017-06-25 03:20] VITALS: PULSE 77
[2017-06-25 04:00] VITALS: BP 134/87; PULSE 85; RESP 20; TEMP 99.3; O2SAT 98
[2017-06-25 04:07] LABS: BICARBONATE 23.5 MEQ/L (21.0-32.0); CALCIUM 8.4 MG/DL (8.5-10.1); CREATININE 0.64 MG/DL (0.60-1.30); MAGNESIUM 1.9 MG/DL (1.5-2.5)
[2017-06-25 04:15] LABS: CHOLESTEROL/ HDL RATIO 5.25 RATIO; HDL CHOLESTEROL 40.5 MG/DL (40.0-60.0)
[2017-06-25 04:18] LABS: AUTOMATED NEUTROPHIL # 6.6 TH/MM3 (1.8-7.7); BASOPHIL % 0.4 % (0.0-2.0); EOSINOPHIL % 0.3 % (0.0-4.0); HEMATOCRIT 41.3 % (39.0-51.0); HEMOGLOBIN 14.4 GM/DL (13.0-17.0); LYMPH % 15.4 % (9.0-44.0); LYMPHOCYTE # 1.4 TH/MM3 (1.0-4.8); MEAN CELL VOLUME 98.9 FL (80.0-100.0); MEAN CORPUSCULAR HEMOGLOBIN 34.5 PG (27.0-34.0); MEAN CORPUSCULAR HGB CONC 34.9 % (32.0-36.0); MEAN PLATELET VOLUME 8.8 FL (7.0-11.0); MONO % 8.8 % (0.0-8.0); MONOCYTE # 0.8 TH/MM3 (0-0.9); NEUT % 75.1 % (16.0-70.0); PLATELET COUNT 145 TH/MM3 (150-450); RED BLOOD COUNT 4.18 MIL/MM3 (4.50-5.90); RED CELL DISTRIBUTION WIDTH 13.2 % (11.6-17.2); WHITE BLOOD COUNT 8.8 TH/MM3 (4.0-11.0)
[2017-06-25] MEDS ORDERED: HEPARIN SODIUM - SQ 10,000 UNITS/ML VIAL SQ SCH (06:00)
[2017-06-25 07:00] VITALS: PULSE 85
[2017-06-25 07:32] VITALS: BP 138/86; PULSE 88; RESP 20; TEMP 98.2; O2SAT 97
[2017-06-25] MEDS ORDERED: INSULIN ASPART SUPPLEMENTAL SCALE SQ SCH (08:00)
[2017-06-25] MEDS: PRAZOSIN HCL 2 MG CAP PO SCH (08:02)
[2017-06-25] MEDS: CLOPIDOGREL 75 MG TAB PO SCH (08:02)
[2017-06-25] MEDS: ASPIRIN 325 MG TAB PO SCH (08:02)
[2017-06-25] MEDS: ATENOLOL 25 MG TAB PO SCH (08:03)
[2017-06-25] MEDS: LISINOPRIL 20 MG TAB PO SCH (08:03)
--- NOTE | 2017-06-25 08:04 | PD.CARD.PN ---
Subjective Subjective Remarks Denies CP, dyspnea, dizziness, groin pain, palpitations. Objective Medications Item Value Date Time Atorvastatin 40 mg 06/24/172099 Calcium HS/PO 06/24/172038 (Lipitor) Aspirin 325 mg 06/24/17899 (Aspirin) DAILY/PO 06/24/1710 Clopidogrel 75 mg 06/24/17899 Bisulfate DAILY/PO 06/24/17 1223 (Plavix) Lisinopril 20 mg 06/24/17899 (Prinivil) DAILY/PO 06/24/1712 Atenolol 25 mg 06/24/17899 (Tenormin) DAILY/PO 06/24/17 0911 Prazosin HCl 2 mg 06/24/17899 (Minipress) DAILY/PO 06/24/17 1223 Current Medications Medications (Trade) Dose Ordered Sig/Mela Route Start Time Stop Time Status Last Admin (NS Flush) 2 ml UNSCH PRN IVF 06/24/17 04:00 Nitroglycerin/ Dextrose 250 ml @ 3 mls/hr TITRATE PRN IV 06/24/17 04:00 06/24/17 04:03 (Restoril) 15 mg HS PRN PO 06/24/17 06:00 (Aspirin) 325 mg DAILY PO 06/24/17 09:00 06/24/17 09:10 (Plavix) 75 mg DAILY PO 06/24/17 09:00 06/24/17 12:23 (Prinivil) 20 mg DAILY PO 06/24/17 09:00 06/24/17 09:12 (Lipitor) 40 mg HS PO 06/24/17 21:00 06/24/17 20:39 (Tenormin) 25 mg DAILY PO 06/24/17 09:00 06/24/17 09:11 (Minipress) 2 mg DAILY PO 06/24/17 09:00 06/24/17 12:23 (Aspirin) 325 mg Q6H PRN PO 06/25/17 02:00 (Morphine Inj) 2 mg Q2H PRN IV PUSH 06/24/17 20:15 06/25/17 02:07 (D50w (Vial) Inj) 50 ml UNSCH PRN IV PUSH 06/25/17 01:30 (Glucagon Inj) 1 mg UNSCH PRN OTHER 06/25/17 01:30 (NovoLOG SUPPLEMENTAL SCALE) 1 ACHS SLIDING SCALE SQ 06/25/17 08:00 (Heparin Inj) 5,000 units Q8HR SQ 06/25/17 06:00 06/25/17 05:52 (Wellbutrin) 100 mg HS PO 06/25/17 21:00 (Zoloft) 200 mg DAILY PO 06/25/17 09:00 (Nitrostat Sl) 0.4 mg Q5M PRN SL 06/25/17 02:00 (Duoneb Neb) 1 ampule Q4HR NEB PRN NEB 06/25/17 02:00 Vital Signs / I&O Vital Signs Date Time Temp Pulse Resp B/P (MAP) Pulse Ox O2 Delivery O2 Flow Rate FiO2 06/25/17 07:34 97 Room Air 06/25/17 07:32 98.2 88 20 138/86 (103) 97 06/25/17 07:00 85 06/25/17 04:00 99.3 85 20 134/87 (103) 98 06/25/17 03:20 77 06/25/17 02:15 18 06/25/17 00:00 99.3 85 20 146/91 (109) 98 06/24/17 23:00 70 06/24/17 19:53 98 Nasal Cannula 4.00 06/24/17 19:00 98.3 82 20 157/96 (116) 95 06/24/17 19:00 82 06/24/17 15:39 98.4 66 18 95 06/24/17 15:00 80 06/24/17 11:06 98.2 64 20 146/92 (110) 96 06/24/17 11:00 64 06/24/17 09:21 95 Nasal Cannula 4.00 06/24/17 08:00 98.0 55 18 123/77 (92) 96 I/O 06/24/17 06/24/17 06/24/17 06/25/17 06/25/17 06/25/17 07:00 15:00 23:00 07:00 15:00 23:00 Intake Total 2870 ml 1115 ml Output Total 1400 ml 1800 ml Balance 1470 ml -685 ml Intake Oral 1600 ml 960 ml IV Total 1270 ml 155 ml Output Urine Total 1400 ml 1800 ml # Bowel Movements 0 0 Physical Exam GENERAL: Well developed, well nourished. No acute distress. HEENT: Jugular venous pressure is normal. CHEST: Lungs clear to auscultation bilaterally. Unlabored respiratory effort. CARDIAC: Regular rate and rhythm without S3, S4, or murmur. ABDOMEN: Soft, nontender, no hepatosplenomegaly. Bowel sounds present. EXTREMITIES: No clubbing, cyanosis, or edema. Right groin nontender, no hematoma. Laboratory Laboratory Tests Test 06/25/17 03:25 White Blood Count 8.8 TH/MM3 Red Blood Count 4.18 MIL/MM3 Hemoglobin 14.4 GM/DL Hematocrit 41.3 % Mean Corpuscular Volume 98.9 FL Mean Corpuscular Hemoglobin 34.5 PG Mean Corpuscular Hemoglobin Concent 34.9 % Red Cell Distribution Width 13.2 % Platelet Count 145 TH/MM3 Mean Platelet Volume 8.8 FL Neutrophils (%) (Auto) 75.1 % Lymphocytes (%) (Auto) 15.4 % Monocytes (%) (Auto) 8.8 % Eosinophils (%) (Auto) 0.3 % Basophils (%) (Auto) 0.4 % Neutrophils # (Auto) 6.6 TH/MM3 Lymphocytes # (Auto) 1.4 TH/MM3 Monocytes # (Auto) 0.8 TH/MM3 Eosinophils # (Auto) 0.0 TH/MM3 Basophils # (Auto) 0.0 TH/MM3 CBC Comment DIFF FINAL Differential Comment Blood Urea Nitrogen 6 MG/DL Creatinine 0.64 MG/DL Random Glucose 208 MG/DL Calcium Level 8.4 MG/DL Magnesium Level 1.9 MG/DL Sodium Level 137 MEQ/L Potassium Level 3.9 MEQ/L Chloride Level 104 MEQ/L Carbon Dioxide Level 23.5 MEQ/L Anion Gap 10 MEQ/L Estimat Glomerular Filtration Rate 130 ML/MIN Total Creatine Kinase 966 U/L Creatine Kinase MB 50.0 NG/ML Creatine Kinase MB % 5.2 % B-Type Natriuretic Peptide 409 PG/ML Triglycerides Level 401 MG/DL Cholesterol Level 213 MG/DL LDL Cholesterol MG/DL HDL Cholesterol 40.5 MG/DL Cholesterol/HDL Ratio 5.25 RATIO Assessment and Plan Problem List: (1) STEMI (ST elevation myocardial infarction) ICD Codes: I21.3 - ST elevation (STEMI) myocardial infarction of unspecified site Status: Acute Plan: Stable overnight. No further angina. No definite CHF, arrhythmias. To continue beta ashley, HAMMAD-I, aspirin, clopidogrel. Stressed importance of compliance with medications. REC 24 hour more observation---> patient wants to sign out AMA (2) Hypertension ICD Codes: I10 - Essential (primary) hypertension Status: Chronic Plan: Somewhat suboptimal BP control in light of concomitant diabetes, CAD. Rec increase atenolol to 50 mg qd. (3) Dyslipidemia ICD Codes: E78.5 - Hyperlipidemia, unspecified Status: Chronic Plan: Suboptimal lipid profile. Recommend increase atorvastatin to 80 mg qd, f /u with Dr. Martinez at [facility]. Consider adding Tricor. Code Status full code Discussed Condition With patient Problem Qualifiers (1) STEMI (ST elevation myocardial infarction): Qualified Codes: I21.02 - ST elevation (STEMI) myocardial infarction involving left anterior descending coronary artery (2) Hypertension: Qualified Codes: I10 - Essential (primary) hypertension Dionisio Encinas MD Jun 25, 2017 08:04
[2017-06-25] MEDS ORDERED: ATEN50TA PO ×2 (08:09→08:11)
[2017-06-25] MEDS ORDERED: PLAV75TA29 PO (08:20)
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
[2017-06-25] MEDS ORDERED: ASA325 PO (08:35)
[2017-06-25] MEDS ORDERED: IOHEXOL 350 MG/ML 50 ML BTL (for Cath Lab) OTHER ONE (08:59)
[2017-06-25] MEDS ORDERED: IOHEXOL 350 MG/ML 100 ML BTL (for Cath Lab) OTHER ONE (08:59)
[2017-06-25] MEDS ORDERED: SERTRALINE HCL 100 MG TAB PO SCH (09:00)
[2017-06-25] MEDS ORDERED: ATENOLOL 25 MG TAB PO SCH (09:00)
[2017-06-25] MEDS ORDERED: metFORMIN HCL 500 MG TAB PO SCH (09:00)
[2017-06-25] MEDS ORDERED: glipiZIDE 5 MG TAB PO SCH (16:00)
[2017-06-25] MEDS ORDERED: ATORVASTATIN 80 MG TAB PO SCH (21:00)
[2017-06-25] MEDS ORDERED: buPROPion HCL 100 MG TAB PO SCH (21:00)
== END 2017-06-25 09:00 | disposition left against medical advice (07) | DRG 249 ==
LOC: NEPE 03:44 → NEDA 04:00 → HCVI 06:17
PROVIDERS: ADMIT Internal Medicine; ATTEND Internal Medicine
PROC: 02703DZ Dilation of Coronary Artery, One Artery with Intraluminal Device, Percutaneous Approach (ICD-10-PCS; principal; 2017-06-24)
PROC: 4A023N7 Measurement of Cardiac Sampling and Pressure, Left Heart, Percutaneous Approach (ICD-10-PCS; 2017-06-24)
PROC: B2111ZZ Fluoroscopy of Multiple Coronary Arteries using Low Osmolar Contrast (ICD-10-PCS; 2017-06-24)
PROC: B2151ZZ Fluoroscopy of Left Heart using Low Osmolar Contrast (ICD-10-PCS; 2017-06-24)
PROC: 3E073KZ Introduction of Other Diagnostic Substance into Coronary Artery, Percutaneous Approach (ICD-10-PCS; 2017-06-24)
DX: I21.02 ST elevation (STEMI) myocardial infarction involving left anterior descending coronary artery (principal); I69.354 Hemiplegia and hemiparesis following cerebral infarction affecting left non-dominant side; I10 Essential (primary) hypertension; Z68.41 Body mass index [BMI] 40.0-44.9, adult; E11.9 Type 2 diabetes mellitus without complications; I25.10 Atherosclerotic heart disease of native coronary artery without angina pectoris; E78.5 Hyperlipidemia, unspecified; F17.210 Nicotine dependence, cigarettes, uncomplicated; F32.9 Major depressive disorder, single episode, unspecified; E66.9 Obesity, unspecified; Z79.84 Long term (current) use of oral hypoglycemic drugs; Z79.899 Other long term (current) drug therapy; Z79.02 Long term (current) use of antithrombotics/antiplatelets
CPT/HCPCS: 71045; 80048; 80061; 82310; 82550; 82552; 83735; 83880; 84484; 85002; 85025; 85610; 85730; 92941; 93005; 93458; 99152; 99153; 99291; C1725; C1760; C1769; C1876; C1887; C1893; G0269; J1644; J2250; J2270; J2405; J3010; J3246; J7030; Q9967